=== PATIENT | male | born 1960 | race American Indian/Alaskan Native ===

== ENCOUNTER 2020-05-19 11:22 | Emergency (ER) | payer BC ==
[~2020-05-19] VITALS: Ht 177.8 cm; Wt 71.0 kg
[2020-05-19] MEDS ORDERED: LORazepam 1 MG tablet PO ONE ×2 (13:00→19:40)
[2020-05-19 13:41] LABS: CLARITY,URINE CLEAR (Clear); COLOR,URINE YELLOW (Yellow); GLUCOSE, URINE NEGATIVE (Neg); KETONES,URINE NEGATIVE (Neg); LEUKOCYTE ESTERASE ,URINE NEGATIVE (Neg); NITRITES, URINE NEGATIVE (Neg); OCCULT BLOOD,URINE TRACE-INTACT (Neg); PROTEIN,URINE NEGATIVE (Neg)
[2020-05-19 13:42] LABS: UA COLLECTION TYPE CLN CATCH MIDSTREAM
[2020-05-19 13:47] LABS: ALANINE AMINOTRANSFERASE 17 U/L (12-78); ALBUMIN 3.8 G/DL (3.4-5.0); ALBUMIN/GLOBULIN RATIO 1.2 (1.1-1.5); ALKALINE PHOSPHATASE 78 IU/L (46-116); ANION GAP 8 (8-16); ASPARTATE AMINO TRANSFERASE 9 U/L (10-37); BILIRUBIN,TOTAL 0.5 MG/DL (0.1-1.0); BLOOD UREA NITROGEN 18 MG/DL (7-18); BUN/CREATININE RATIO 19.1 (5.4-32.0); CALCIUM 9.1 MG/DL (8.5-10.1); CHLORIDE 109 MMOL/L (99-107); CREATININE 0.94 MG/DL (0.60-1.10); GLUCOSE 96 MG/DL (70-104); POTASSIUM 4.2 MMOL/L (3.5-5.1); SODIUM 146 MMOL/L (135-145); TOTAL CARBON DIOXIDE 29.4 MMOL/L (24-32); TOTAL PROTEIN 7.1 G/DL (6.4-8.2); eGFR 82 ML/MIN
[2020-05-19 13:50] LABS: AMORPHOUS URATES 1+; MUCUS STRANDS MANY /LPF (Neg); SQUAMOUS EPITHELIAL CELL,UR FEW /LPF (FEW)
[2020-05-19 13:51] LABS: BACTERIA,URINE FEW /HPF (Neg); RBC,URINE 0-2 /HPF (0-2); WBC,URINE 0-4 /HPF (0-4)
[2020-05-19 13:55] LABS: BASOPHILS # (AUTO) 0.1 X10'3 (0-0.2); BASOPHILS % (AUTO) 1.1 % (0-1); EOSINOPHILS # (AUTO) 0.5 X10'3 (0-0.9); EOSINOPHILS % (AUTO) 5.9 % (0-6); HEMATOCRIT 41.2 % (42.0-52.0); HEMOGLOBIN 13.6 g/dl (14.0-17.9); LYMPHOCYTES # (AUTO) 1.8 X10'3 (1.1-4.8); LYMPHOCYTES % (AUTO) 21.9 % (21-51); MEAN CORPUSCULAR HEMOGLOBIN 30.2 PG (27.0-31.0); MEAN CORPUSCULAR HGB CONC 33.1 g/dL (33.0-36.5); MEAN CORPUSCULAR VOLUME 91.4 FL (78-98); MONOCYTES # (AUTO) 0.8 X10'3 (0-0.9); MONOCYTES % (AUTO) 9.5 % (2-12); NEUTROPHILS % (AUTO) 61.6 % (42-75); PLATELET COUNT 247 X10'3 (140-440); RED BLOOD COUNT 4.51 X10'6 (4.70-6.10); RED CELL DISTRIBUTION WIDTH 14.1 % (11.5-14.5); WHITE BLOOD COUNT 8.2 X10'3 (4.5-11.0)
[2020-05-19 13:57] LABS: ETHANOL < 0.010 GM/DL (0.0-0.010)
[2020-05-19 14:03] LABS: URINE AMPHETAMINE SCREEN NEGATIVE (Neg); URINE BARBITUATE SCREEN NEGATIVE (Neg); URINE BENZODIAZEPINES SCREEN NEGATIVE (Neg); URINE CANNABINOID SCREEN POSITIVE (Neg); URINE COCAINE SCREEN NEGATIVE (Neg); URINE METHADONE SCREEN NEGATIVE (Neg); URINE OPIATE SCREEN NEGATIVE (Neg); URINE PHENCYCLIDINE SCREEN NEGATIVE (Neg)
[2020-05-19 14:16] VITALS: BP 146/95
--- NOTE | 2020-05-19 14:33 | NUR ---
call to [facility] to see if bed available, will look pt up and let us know.
--- NOTE | 2020-05-19 14:50 | NUR ---
ANTHONY FAXED TO [facility] Addendum: 05/19/20 at 1451 by SALLIE NOTE BY BRA[facility]
--- NOTE | 2020-05-19 15:50 | NUR ---
PT BEING EVALUATED BY [facility]
--- NOTE | 2020-05-19 16:11 | NUR ---
CALL TO [facility] TO SEE IF THEY HAVE EVALED PT. STATED WILL START EVAL NOW.
--- NOTE | 2020-05-19 19:05 | NUR ---
Called Rachel Davis for report on patient. Rachel Davis states she needs to speak to provider Bao Mccarthy about which patients are coming up to their unit and she will call me back.
[2020-05-19] MEDS ORDERED: LORA-269 PO (19:29)
[2020-05-19] MEDS ORDERED: OXCA300T16 PO (19:30)
--- NOTE | 2020-05-19 19:40 | NUR ---
left for the evening. Med rec completed with and signed by MD. MD Conteh contacted for 1x dose of 1 mg PO Ativan at this time for patient's stated agitation.
--- NOTE | 2020-05-19 21:43 | NUR ---
, Yasmin: [phone]
== END 2020-05-19 21:55 ==
LOC: ER 11:23
DX: F32.9 Major depressive disorder, single episode, unspecified (principal); Z20.822 Contact with and (suspected) exposure to COVID-19; Z79.899 Other long term (current) drug therapy; Z59.0 Homelessness
CPT/HCPCS: 36415; 80053; 80305; 80320; 81001; 84443; 85025; 87426; 99285